=== PATIENT | female | born 1990 | race Caucasian/White ===

== ENCOUNTER → 2016-06-16 | Outpatient (CLI) | payer BC ==
[~2016-06-16] MED LIST: COLACE-DPS100 MG PO; FLUORIDE0.5 MG PO; LAN-O-SOOTHE7 GM TP; MOTRIN-DPS800 MG PO; NIPPLECREAM TP; PERCOCET 5-3251 EACH PO; PRENATAL VITAM1 EAC6 PO; ZOLOFT50 MG PO
== END | disposition home or self-care (01) ==
LOC: RAD.S 16:28
DX: Z36 Encounter for antenatal screening of mother (principal); Z3A.20 20 weeks gestation of pregnancy

== ENCOUNTER 2016-07-27 13:30 | Outpatient (CLI) | payer BC ==
[2016-10-27] MEDS ORDERED: ZOLOFT50 MG PO (15:07)
[2016-10-27] MEDS ORDERED: FLUORIDE0.5 MG PO (15:08)
[2016-10-27] MEDS ORDERED: PRENATAL VITAM1 EAC6 PO (15:08)
[2016-10-27] MEDS ORDERED: COLACE-DPS100 MG PO (15:09)
[2016-10-27] MEDS ORDERED: MOTRIN-DPS800 MG PO (15:09)
[2016-10-27] MEDS ORDERED: PERCOCET 5-3251 EACH PO (15:09)
[2016-10-27] MEDS ORDERED: NIPPLECREAM TP (15:10)
[2016-10-27] MEDS ORDERED: LAN-O-SOOTHE7 GM TP (15:10)
== END 2016-07-27 14:34 | disposition home or self-care (01) ==
LOC: BC 13:30
DX: O47.02 False labor before 37 completed weeks of gestation, second trimester (principal); Z3A.26 26 weeks gestation of pregnancy